=== PATIENT | male | born 1955 | race Caucasian/White ===

== ENCOUNTER 2022-04-19 10:16 | Emergency (ER) | payer OTHER ==
--- NOTE | 2022-04-19 11:07 | ED Physician Documentation ---
PD HPI FOCAL NEURO - Stated complaint Stated Complaint: EYE ISSUE - Chief complaint Chief Complaint: Neuro - History obtained from History obtained from: Patient - Additional information Additional information: 66-year-old gentleman with history of stroke. In January 2020 he was in [place] and developed left hemiparesis that was preceded by some visual auras. He does not remember if the aura went away prior to his stroke or if it was persistent, and he does not remember at that time if the visual issue was in 1 or both eyes. Regardless it sounds like he had an LVO retrieval and his only persistent symptom is very mild numbness in the left third through fifth fingers. From 08 04- today he develops kaleidoscope vision in the lateral field of the left eye only. It was not associate with headache. It is gone and he has no persistent symptoms. Review of Systems Constitutional: denies: Fever, Chills Nose: denies: Rhinorrhea / runny nose Throat: denies: Sore throat Respiratory: denies: Dyspnea PD PAST MEDICAL HISTORY - Allergies Allergies/Adverse Reactions: Allergies Allergy/AdvReac Type Severity Reaction Status Date / Time No Known Drug Allergies Allergy Verified 04/19/22 10:27 PD ED PE NORMAL - Vitals Vital signs reviewed: Yes - General General: Alert and oriented X 3, No acute distress - HEENT HEENT: PERRL, EOMI, Ears normal, Pharynx benign - Neck Neck: Supple, no meningeal sign, No bony TTP - Cardiac Cardiac: RRR, No murmur - Respiratory Respiratory: No respiratory distress, Clear bilaterally - Abdomen Abdomen: Normal bowel sounds, Soft, Non tender - Back Back: No CVA TTP, No spinal TTP - Derm Derm: Normal color, Warm and dry - Neuro Neuro: Alert and oriented X 3, No motor deficit, No sensory deficit, Normal speech Eye Opening: Spontaneous Motor: Obeys Commands Verbal: Oriented GCS Score: 15 - Psych Psych: Normal mood, Normal affect Results - Vitals Vitals: Vital Signs - 24 hr 04/19/22 04/19/22 04/19/22 10:22 11:00 11:45 Temperature 36.2 C L Heart Rate 62 65 62 Respiratory 16 14 20 Rate Blood Pressure 149/87 H 184/95 H 130/83 H O2 Saturation 99 97 96 04/19/22 12:00 Temperature Heart Rate 61 Respiratory 21 Rate Blood Pressure 127/82 H O2 Saturation 97 Oxygen O2 Source Room air - EKG (time done) 1206 Rate: Rate (enter#) (57) Rhythm: NSR [place]: Normal Intervals: Normal PA QRS: Normal Ischemia: Non specific changes. No: ST elevation c/w ischemia, ST depression - Labs Labs: Laboratory Tests 04/19/22 04/19/22 10:53 10:53 WBC 5.9 RBC 4.99 Hgb 15.8 Hct 46.5 MCV 93.2 MCH 31.7 H MCHC 34.0 RDW 12.8 Plt Count 198 MPV 11.3 Neut # (Auto) 3.5 Lymph # (Auto) 1.5 [place] # (Auto) 0.6 Eos # (Auto) 0.3 Baso # (Auto) 0.0 Absolute Nucleated RBC 0.00 Nucleated RBC % 0.0 Sodium 139 Potassium 4.1 Chloride 105 Carbon Dioxide 25 Anion Gap 9.0 BUN 28 H Creatinine 1.1 Estimated GFR (MDRD) 67 L Glucose 83 Calcium 10.6 H Magnesium 2.1 PD MEDICAL DECISION MAKING - ED course ED course: 66-year-old gentleman with history of stroke preceded by a visual aura presents with a visual aura now resolved. He has no ongoing symptoms NIH stroke scale was 0. Noncontrast CT of the head demonstrated his old stroke but no acute findings. Significant paranasal sinus disease was noted and discussed with the patient. This has been an ongoing problem he would like a referral to ENT. He was bradycardic at times here he states that this is basically his baseline, he notes his heart rate is usually in the 40s. He was observed for several hours given the concern for impending stroke without any new neurologic deficits or complaints save a mild headache. Departure - Departure Disposition: 01 Home, Self Care Clinical Impression: Visual aura Chronic sinusitis Qualifiers: Sinusitis location: pansinusitis Qualified Code(s): J32.4 - Chronic pansinusitis Condition: Good Record reviewed to determine appropriate education?: Yes Instructions: ED Sinusitis No Abx Comments: Return immediately if you develop new neurologic symptoms or concerns. As discussed given the chronic sinusitis reasonable to follow-up with ENT, phone number is [phone] for the closest clinic in [place]. Continue current medications.
[2022-04-19 12:00] LABS: BASOPHILS % (AUTO) 0.7 %; EOSINOPHILS # (AUTO) 0.3 10^3/uL (0.0-0.7); EOSINOPHILS % (AUTO) 4.2 %; HCT - HEMATOCRIT 46.5 % (42.0-52.0); HGB - HEMOGLOBIN 15.8 g/dL (14.0-18.0); LYMPHOCYTES # (AUTO) 1.5 10^3/uL (1.5-3.5); LYMPHOCYTES % (AUTO) 26.1 %; MEAN CORPUSCULAR HEMOGLOBIN 31.7 pg (27.0-31.0); MEAN CORPUSCULAR VOLUME 93.2 fL (80.0-94.0); MEAN PLATELET VOLUME 11.3 fL (7.4-11.4); MONOCYTES # (AUTO) 0.6 10^3/uL (0.0-1.0); MONOCYTES % (AUTO) 9.6 %; NEUTROPHILS # (AUTO) 3.5 10^3/uL (1.5-6.6); NEUTROPHILS % (AUTO) 59.1 %; PLT - PLATELET COUNT 198 10^3/uL (130-450); RED BLOOD COUNT 4.99 10^6/uL (4.70-6.10); RED CELL DISTRIBUTION WIDTH 12.8 % (12.0-15.0); WHITE BLOOD COUNT 5.9 x10^3/uL (4.8-10.8)
[2022-04-19 12:05] LABS: CALCIUM 10.6 mg/dL (8.5-10.3); CREATININE 1.1 mg/dL (0.6-1.2); MAGNESIUM 2.1 mg/dL (1.7-2.8); POTASSIUM 4.1 mmol/L (3.5-5.0)
--- NOTE | 2022-04-19 12:07 | CT Report ---
PROCEDURE: HEAD WO INDICATIONS: Eye issue, poss TIA TECHNIQUE: Noncontrast 4.5 mm thick angled axial sections acquired from the foramen magnum to the vertex. For r adiation dose reduction, the following was used: automated exposure control, adjustment of mA and/or kV according to patient size. COMPARISON: None. FINDINGS: Image quality: Excellent. CSF spaces: Basal cisterns are patent. No extra-axial fluid collections. Ventricles are normal in size and shape. Brain: No midline shift. No intracranial masses or hemorrhage. Rothman-white matter interface is norm al. Skull and face: Calvarium and visualized facial bones are intact, without suspicious lesions. There is a remote infarction seen involving the right frontoparietal region, with volume loss and encephalo malacia. Sinuses: Moderate mucosal thickening is seen within the ethmoid air cells and within the sphenoid si nuses. No significant abnormal fluid can be seen within the mastoid air cells. IMPRESSION: No significant acute intracranial abnormality is seen. Remote right frontoparietal infarction. If there is strong clinical concern for a stroke, please consider a dedicated brain MRI for further e valuation (assuming that there is no contraindication to MRI). Paranasal sinus disease is incidentally noted. Reviewed by: Shady Alfonso MD on 04/19/2022 11:05 AM MARSHA Approved by: Shady Alfonso MD on 04/19/2022 11:05 AM MARSHA Station ID: [id number]
[2022-04-19 12:33] VITALS: BP 127/86
== END 2022-04-19 12:37 | disposition home or self-care (01) ==
LOC: ED 10:16
DX: H53.8 Other visual disturbances (principal); J32.4 Chronic pansinusitis
CPT/HCPCS: 36415; 80048; 83735; 85025; 93005; 99283; 99284